=== PATIENT | female | born 1985 | race Caucasian/White ===

== ENCOUNTER 2017-03-15 03:25 | Emergency (ER) | payer BC ==
[2017-03-15 03:40] VITALS: BMI 22.6
--- NOTE | 2017-03-15 04:13 | ED PDOC ---
Arrival/HPI - General Chief Complaint: Female Genitourinary Time Seen by Provider: 03/15/17 03:59 Historian: Patient, Spouse - History of Present Illness Narrative History of Present Illness (Text): 03/15/17 04:08 Lena Melgar is a 31 year old female, , currently 12 week , who presents to the Emergency department complaining of scanty vaginal bleeding earlier today. Patient denies any vaginal bleeding currently. Patient denies any urinary symptoms, abdominal pain, nausea, vomiting, diarrhea, back pain, neck pain, headache, dizziness, or any other complaints. Time/Duration: Other (this morning) Symptom Course: Unchanged Activities at Onset: Rest, Light Context: Home Past Medical History - Provider Review Nursing Documentation Reviewed: Yes - Infectious Disease Hx of Infectious Diseases: None - Psychiatric Hx Substance Use: No - Anesthesia Hx Anesthesia: No Family/Social History - Physician Review Nursing Documentation Reviewed: Yes Family/Social History: No Known Family HX Smoking Status: Smoker Currrent Status Unknown Hx Alcohol Use: No Hx Substance Use: No Allergies/Home Meds Allergies/Adverse Reactions: Allergies No Known Allergies Allergy (Unverified 03/15/17 03:59) Review of Systems - Physician Review All systems were reviewed & negative as marked: Yes - Review of Systems Constitutional: Normal. absent: Fevers Eyes: Normal ENT: Normal Respiratory: Normal. absent: SOB, Cough Cardiovascular: Normal. absent: Chest Pain Gastrointestinal: Normal. absent: Abdominal Pain, Diarrhea, Nausea, Vomiting Genitourinary Female: Vaginal Bleeding. absent: Dysuria, Frequency, Hematuria, Urine Output Changes Musculoskeletal: Normal. absent: Back Pain, Neck Pain Skin: Normal. absent: Rash Neurological: Normal. absent: Headache, Dizziness Endocrine: Normal Hemo/Lymphatic: Normal Psychiatric: Normal Physical Exam Vital Signs Reviewed: Yes Vital Signs Temp Pulse Resp BP Pulse Ox 03/15/17 03:42 98.0 F 84 18 114/74 99 Temperature: Afebrile Blood Pressure: Normal Pulse: Regular Respiratory Rate: Normal Appearance: Positive for: Well-Appearing, Non-Toxic, Comfortable Pain Distress: None Mental Status: Positive for: Alert and Oriented X 3 - Systems Exam Head: Present: Atraumatic, Normocephalic Pupils: Present: PERRL Extroacular Muscles: Present: EOMI Conjunctiva: Present: Normal Mouth: Present: Moist Mucous Membranes Neck: Present: Normal Range of Motion Respiratory/Chest: Present: Clear to Auscultation, Good Air Exchange. No: Respiratory Distress, Accessory Muscle Use Cardiovascular: Present: Regular Rate and Rhythm, Normal S1, S2. No: Murmurs Abdomen: Present: Normal Bowel Sounds. No: Tenderness, Distention, Peritoneal Signs Genitourinary/Pelvic Exam: Present: Normal External Genitalia, Other (MARTHA Justin present as punch molder). No: Vaginal Discharge, Vaginal Bleeding (No active bleeding) Back: Present: Normal Inspection Upper Extremity: Present: Normal Inspection. No: Cyanosis, Edema Lower Extremity: Present: Normal Inspection. No: Edema Neurological: Present: GCS=15, CN II-XII Intact, Speech Normal Skin: Present: Warm, Dry, Normal Color. No: Rashes Psychiatric: Present: Alert, Oriented x 3, Normal Insight, Normal Concentration Medical Decision Making ED Course and Treatment: 03/15/17 04:08 Impression: 31 year old female complaining of vaginal bleeding earlier today. Plan: -- Transvaginal US -- Labs, Beta-HCG, blood type and screen -- Urinalysis -- Reassess and disposition Progress Notes: 03/15/17 05:18 Reviewed sono, Transvaginal US shows: Gestation: There is a single intrauterine fetus. Heartbeat of 167 beats per minute. [place]-rump length is 4.8 cm suggesting an age of 11 weeks 4 days. The EDC is 09/30/2017. Placenta/amniotic fluid: Cannot be adequately evaluated due to the early gestational age. Uterus/cervix: The uterus measures 10.3 cm in its cephalocaudad dimension and 5.6 x 8.2 cm in its AP and lateral dimensions. The cervix is closed and measures 2 cm. No myometrial mass. Ovaries: Unremarkable. No mass. Free fluid: No free fluid. IMPRESSION: 1. Closed cervix measuring 2 cm. 2. Single live intrauterine fetus with an estimated age of 11 weeks 4 days. The EDC is 09/30/2017. - Lab Interpretations Lab Results: 03/15/17 05:23 03/15/17 05:23 Lab Results 03/15/17 06:14: Urine Color Straw, Urine Appearance Clear, Urine pH 7.5, Ur Specific [place] 1.010, Urine Protein Negative, Urine Glucose (UA) Negative, Urine Ketones Negative, Urine Blood Moderate H, Urine Nitrate Negative, Urine Bilirubin Negative, Urine Urobilinogen 0.2, Ur Leukocyte Esterase Negative, Urine RBC 0 - 2, Urine WBC 0 - 2, Ur Epithelial Cells 0 - 2, Urine HCG, Qual Positive 03/15/17 05:23: WBC 8.7, RBC 3.98, Hgb 11.9 L, Hct 34.8 L, MCV 87.4, MCH 29.9, MCHC 34.2, RDW 12.7, Plt Count 248, MPV 9.9 03/15/17 05:23: Sodium 138, Potassium 4.0, Chloride 106, Carbon Dioxide 23, Anion Gap 13, BUN 6 L, Creatinine 0.4 L, Est GFR ( Amer) > 60, Est GFR ( Non-Af Amer) > 60, Random Glucose 84, Calcium 9.3, Total Bilirubin 0.2, AST 19, ALT 27, Alkaline Phosphatase 53, Total Protein 7.1, Albumin 3.8, Globulin 3.3, Albumin/Globulin Ratio 1.2 03/15/17 05:23: PT 11.3, INR 1.05, APTT 30.1 I have reviewed the lab results: Yes - RAD Interpretation Radiology Orders: 03/15/17 04:00 OB TRANSVAGINAL [US] Stat Endband Sizer: Radiologist - Scribe Statement The provider has reviewed the documentation as recorded by the Scribsaira Lee All medical record entries made by the Scribe were at my direction and personally dictated by me. I have reviewed the chart and agree that the record accurately reflects my personal performance of the history, physical exam, medical decision making, and the department course for this patient. I have also personally directed, reviewed, and agree with the discharge instructions and disposition. Disposition/Present on Arrival - Present on Arrival Any Indicators Present on Arrival: No History of DVT/PE: No History of Uncontrolled Diabetes: No Urinary Catheter: No History of Decub. Ulcer: No History Surgical Site Infection Following: None - Disposition Have Diagnosis and Disposition been Completed?: Yes Diagnosis: Threatened Disposition: HOME/ ROUTINE Disposition Time: 06:55 Patient Plan: Discharge Condition: GOOD Discharge Instructions (ExitCare): Threatened Miscarriage (ED) Additional Instructions: Rest/no strenuous physical activity/follow up with your emergency communications dispatcher this week/ any recurrent persistent or heavy vaginal bleeding or pain return to the emergency room Referrals: Chay Kern MD [Primary Care Provider] - Follow up with primary
[2017-03-15 05:56] LABS: HEMATOCRIT 34.8 % (36.0-48.0); MEAN CELL VOLUME 87.4 fL (80.0-105.0); MEAN CORPUSCULAR HEMOGLOBIN 29.9 pg (25.0-35.0); MEAN CORPUSCULAR HGB CONC 34.2 g/dl (31.0-37.0); MEAN PLATELET VOLUME 9.9 fl (7.0-11.0); RED CELL DISTRIBUTION WIDTH 12.7 % (11.5-14.5); WHITE BLOOD COUNT 8.7 10^3/ul (4.5-11.0)
[2017-03-15 06:06] LABS: INR 1.05 (0.93-1.08); PARTIAL THROMBOPLASTIN TIME 30.1 Seconds (23.7-30.8)
[2017-03-15 06:27] LABS: ALB/GLOB RATIO 1.2 (1.1-1.8); ALKALINE PHOSPHATASE 53 U/L (38-133); ALT/SGPT 27 U/L (7-56); AST/SGOT 19 U/L (15-39); BILIRUBIN,TOTAL 0.2 mg/dL (0.2-1.3); BLOOD UREA NITROGEN 6 mg/dL (7-21); CALCIUM 9.3 mg/dL (8.4-10.5); CARBON DIOXIDE 23 mmol/L (21-33); CHLORIDE 106 mmol/L (98-107); GFR AFRICAN-AMERICAN > 60; GLUCOSE,RANDOM 84 mg/dL (70-110); SODIUM 138 mmol/L (132-148); TOTAL PROTEIN 7.1 g/dL (5.8-8.3)
[2017-03-15 06:34] LABS: PH,URINE 7.5 (4.7-8.0); URINE BILIRUBIN NEGATIVE (NEGATIVE); URINE BLOOD MODERATE (NEGATIVE); URINE GLUCOSE (UA) NEGATIVE (NEGATIVE); URINE KETONE NEGATIVE (NEGATIVE); URINE LEUKOCYTE ESTERASE NEGATIVE Leu/uL (NEGATIVE); URINE PROTEIN NEGATIVE mg/dL (<30 mg/dL); URINE UROBILINOGEN 0.2 E.U./dL (<1 E.U./dL)
[2017-03-15 06:47] LABS: URINE APPEARANCE CLEAR (CLEAR); URINE COLOR STRAW (YELLOW)
[2017-03-15 06:51] LABS: URINE EPITHELIAL CELLS 0 - 2 /hpf (0-5); URINE RBC 0 - 2 /hpf (0-2); URINE WBC 0 - 2 /hpf (0-6)
[2017-03-15 08:57] VITALS: O2SAT 100
[2017-03-15 09:40] VITALS: BP 122/69; PULSE 90; RESP 18; TEMP 98
--- NOTE | 2017-03-15 10:00 | US ---
PROCEDURE: OB Pelvic Ultrasound HISTORY: bleeding COMPARISON: None available. FINDINGS: UTERUS: Single Live intrauterine gestation. CRL equivalent to 11 weeks 4 days gestatioin age (Ultrasound estimated): 11 weeks 4 days Date of delivery (Ultrasound estimated) : 09/26/2017 Heart rate: 159 bpm. Yajaira-gestational hemorrhage: None. Uterus measures 10.3 x 5.6 x 8.2 cm. No mass CERVIX: 2.0 cm and closed RIGHT OVARY: Not visualized LEFT OVARY: Not visualize FREE FLUID: None. OTHER FINDINGS: None. IMPRESSION: Single live intrauterine gestation of approximately 11 weeks 4 days gestational age by crown-rump length. No perigestational hemorrhage. Cervix closed and measures 2.0 cm in length. Preliminary interpretation of this examination was reported by [facility] at 5:15 a.m. on 03/15/2017. There is concurrence of this report with the preliminary interpretation.
== END 2017-03-15 09:43 | disposition home or self-care (01) ==
LOC: ED 03:25
DX: O20.0 Threatened abortion (principal); Z3A.12 12 weeks gestation of pregnancy
CPT/HCPCS: 76817; 80053; 81001; 84702; 84703; 85027; 85610; 85730; 86850; 86900; 99284; J2792